=== PATIENT | male | born 1990 | race Caucasian/White ===

== ENCOUNTER 2020-02-28 17:51 | Emergency (ER) | payer SELFPAY ==
[~2020-02-28] VITALS: Ht 193 cm; Wt 77.3 kg
[2020-02-28 17:58] VITALS: BP 115/60; Ht 193 cm; Wt 77.3 kg
[2020-02-28] MEDS ORDERED: VOLTAREN75 MG PO (19:49)
[2020-02-28] MEDS ORDERED: KEFLEX500 MG PO (19:49)
== END 2020-02-28 19:57 | disposition home or self-care (01) ==
LOC: D.ER 17:51
DX: S69.92XA Unspecified injury of left wrist, hand and finger(s), initial encounter (principal); T14.8XXA Other injury of unspecified body region, initial encounter; X58.XXXA Exposure to other specified factors, initial encounter